=== PATIENT | male | born 1935 | race Two or more races ===

== ENCOUNTER 2024-12-14 18:09 | Emergency (ER) | payer MEDICARE, OTHER ==
[~2024-12-14] VITALS: Ht 170.2 cm; Wt 68.0 kg
[2024-12-14] MEDS ORDERED: LIDOCAINE 2% JEL UROJET 10 ML MM ONE ×2 (18:34→19:02)
[2024-12-14] MEDS ORDERED: ACETAMINOPHEN ES 500 MG TABLET ONE (19:02)
[2024-12-14] MEDS: LIDOCAINE 2% JEL UROJET 10 ML MM ONE (19:06)
[2024-12-14] MEDS: ACETAMINOPHEN ES 500 MG TABLET PO ONE (19:24)
[2024-12-14 20:48] VITALS: BP 125/70; TEMP 98.4; O2SAT 97
== END 2024-12-14 20:48 | disposition home or self-care (01) ==
LOC: ER 18:17
DX: T83.038A Leakage of other urinary catheter, initial encounter (principal); N40.0 Benign prostatic hyperplasia without lower urinary tract symptoms; Z86.79 Personal history of other diseases of the circulatory system; Z87.438 Personal history of other diseases of male genital organs; Y84.6 Urinary catheterization as the cause of abnormal reaction of the patient, or of later complication, without mention of misadventure at the time of the procedure; Y92.89 Other specified places as the place of occurrence of the external cause
CPT/HCPCS: 99284; 51702; J3490 ×2